=== PATIENT | male | born 1945 | race African-American/Black ===

== ENCOUNTER 2025-05-10 21:25 | Emergency (ER) | payer OTHER ==
[~2025-05-10] VITALS: Ht 182.9 cm; Wt 79.4 kg
[2025-05-10 21:50] VITALS: BP 143/81
[2025-05-10 22:34] VITALS: BP 140/80; O2SAT 97
== END 2025-05-10 22:40 | disposition home or self-care (01) ==
LOC: ER 22:12
DX: R22.31 Localized swelling, mass and lump, right upper limb (principal); R22.32 Localized swelling, mass and lump, left upper limb
CPT/HCPCS: A4606; A4663